=== PATIENT | female | born 1970 | race Caucasian/White ===

== ENCOUNTER → 2020-10-05 09:51 | Outpatient (BNVA) | payer MEDICARE, MEDICAID, SELFPAY | PROVIDERS: Family Provider Family Medicine; PCP Family Medicine; Visit Provider Family Medicine | DX: R03.0 Elevated blood-pressure reading, without diagnosis of hypertension (principal); Z13.6 Encounter for screening for cardiovascular disorders; R73.03 Prediabetes; R53.83 Other fatigue; N95.1 Menopausal and female climacteric states; E78.00 Pure hypercholesterolemia, unspecified; J30.1 Allergic rhinitis due to pollen; R53.82 Chronic fatigue, unspecified | CPT/HCPCS: 80053; 80061; 82607; 82652; 83036; 84443; 85025 ==

== ENCOUNTER 2022-02-06 09:11 | Outpatient (CLI) | payer MEDICARE, MEDICAID, SELFPAY ==
--- NOTE | 2022-02-06 09:00 | XR_ITS ---
WS: [id number] XR KUB [id number] REASON FOR EXAM: STONES FINDINGS: Large staghorn calculus with additional lower pole calculi in the left kidney. Left kidney appears so mewhat distorted with upper pole enlargement/mass. Previous CT 01/20/2022 demonstrates complex staghor n calculus with large left kidney with multiple areas of decreased density and fat compatible with xa nthogranulomatous pyelonephritis. No definite right renal calculi. No ureteral or bladder calculi identified. Extensive postsurgical changes in the lower lumbar spine. XR/XR KUB [id number] IMPRESSION: Complex left renal abnormality as above.
== END 2022-02-06 09:12 | disposition home or self-care (01) ==
LOC: RAD 09:12
PROVIDERS: PCP Family Medicine; Visit Provider Nurse Practitioner Family
DX: N20.9 Urinary calculus, unspecified (principal); N39.0 Urinary tract infection, site not specified; N26.1 Atrophy of kidney (terminal); N13.30 Unspecified hydronephrosis
CPT/HCPCS: 74018; 81003; 87086; 99204

== ENCOUNTER 2022-02-20 07:34 | Outpatient (CLI) | payer MEDICARE, MEDICAID, SELFPAY ==
--- NOTE | 2022-02-20 08:00 | NM_ITS ---
WS: [id number] NUCLEAR MEDICINE RENAL SCINTIGRAPHY INDICATION: Atrophic kidney TECHNIQUE: Nuclear medicine renal scintigraphy. 11.6 mCi technetium DTPA FINDINGS: Poor renal function LEFT kidney. Decreased initial perfusion LEFT kidney with only 20% upta ke. Persistent increased activity in the LEFT kidney with no significant excretion. More normal appearing perfusion and excretion RIGHT kidney with estimated GFR 114. Lasix was not admi nistered. NM/NM renal flow wo pharm [id number] IMPRESSION: Poor renal function LEFT kidney with decreased activity in all phas es with no significant excretion.
== END 2022-02-20 07:35 | disposition home or self-care (01) ==
LOC: RAD 07:37
PROVIDERS: PCP Family Medicine; Visit Provider Urology
DX: N26.1 Atrophy of kidney (terminal) (principal); N13.30 Unspecified hydronephrosis
CPT/HCPCS: 78707; A9539

== ENCOUNTER → 2022-02-23 14:25 | Outpatient (BNVA) | payer MEDICARE, MEDICAID, SELFPAY | PROVIDERS: PCP Family Medicine; Visit Provider Urology | DX: N20.9 Urinary calculus, unspecified (principal); N26.1 Atrophy of kidney (terminal); N28.9 Disorder of kidney and ureter, unspecified | CPT/HCPCS: 99214 ==